=== PATIENT | female | born 1995 | race Caucasian/White ===

== ENCOUNTER 2023-01-05 12:35 | Emergency (ER) | payer BC ==
[~2023-01-05] VITALS: Ht 162.6 cm; Wt 59.4 kg
--- NOTE | 2023-01-05 12:50 | NUR ---
URINE SAMPLE COLLECTED AND SENT TO LAB
[2023-01-05 13:33] LABS: BILIRUBIN,URINE NEGATIVE (NEGATIVE); COLOR,URINE YELLOW (YELLOW); LEUKOCYTE ESTERASE ,URINE NEGATIVE (NEGATIVE); NITRITE, URINE NEGATIVE (NEGATIVE); PROTEIN,URINE NEGATIVE (NEGATIVE); UGLUCOSE NEGATIVE (NEGATIVE); UROBILINOGEN,URINE 0.2 EU/dL (0.2)
[2023-01-05 13:34] LABS: BACTERIA,URINE Rare /HPF (None Seen); SQUAMOUS EPITHELIAL CELL,UR Few /HPF (None Seen); WBC,URINE 0-2 /HPF (0-3)
[2023-01-05] MEDS ORDERED: IV NS 0.9% 1,000 ML IV ONE (14:00)
[2023-01-05] MEDS ORDERED: KETOROLAC TROMETHAMINE INJ 30 MG/ML VIAL IV ONE (14:00)
[2023-01-05 14:27] LABS: BASOPHILS # (AUTO) 0.1 K/uL (0.0-0.2); BASOPHILS % (AUTO) 1.1 % (0.0-2.0); EOSINOPHILS % (AUTO) 1.3 % (0.0-6.0); HEMATOCRIT 46 % (33-45); HEMOGLOBIN 15.6 g/dL (11.5-14.8); LYMPHOCYTES % (AUTO) 37.8 % (20.0-44.0); MEAN CORPUSCULAR HGB CONC 34 g/dl (31.0-36.0); MEAN CORPUSCULAR VOLUME 93 fL (82-100); MONOCYTES # (AUTO) 0.2 K/uL (0.1-1.30); MONOCYTES % (AUTO) 4.4 % (2.0-12.0); NEUTROPHILS # (AUTO) 2.9 K/uL (1.8-8.9); NEUTROPHILS % (AUTO) 55.4 % (43.0-81.0); PLATELET COUNT (AUTO) 246 K/uL (150-450); RED BLOOD CELL COUNT(AUTO) 4.97 MIL/uL (4.0-5.2); WHITE BLOOD COUNT (AUTO) 5.3 K/uL (4.3-11.0)
[2023-01-05 14:51] LABS: ALBUMIN 4.3 g/dL (3.4-5.0); BILIRUBIN,TOTAL 0.4 mg/dL (0.2-1.0); CALCIUM, SERUM 9.8 mg/dL (8.5-10.1); CREATININE 0.7 mg/dL (0.6-1.3); POTASSIUM 3.9 mmol/L (3.5-5.1); TOTAL PROTEIN, SERUM 8.3 g/dL (6.4-8.2)
[2023-01-05] MEDS ORDERED: IBUP-1955 PO (15:02)
[2023-01-05] MEDS ORDERED: PHEN-704 PO (15:02)
[2023-01-05 15:18] VITALS: BP 115/76
--- NOTE | 2023-01-05 15:18 | NUR ---
Patient discharged to home in stable condition, ambulating. Written and verbal after care instructions given. Patient verbalizes understanding of instruction.
== END 2023-01-05 15:19 | disposition home or self-care (01) ==
LOC: ER 12:36
DX: R55 Syncope and collapse (principal); R30.0 Dysuria; Z79.899 Other long term (current) drug therapy
CPT/HCPCS: 36415; 80053-TC; 81001; 83690-TC; 84703-TC; 85025-TC

== ENCOUNTER 2023-01-08 08:22 | Emergency (ER) | payer BC ==
[~2023-01-08] VITALS: Ht 162.6 cm; Wt 59.4 kg
[~2023-01-08 08:22] MED LIST: IBUP-1955 PO; PHEN-704 PO
--- NOTE | 2023-01-08 08:36 | NUR ---
C/O NECK PAIN RADIATING TO LEFT UPPER ARM THIS AM AFTER WAKING UP. DENIES TRAUMA.
--- NOTE | 2023-01-08 08:59 | NUR ---
AMBULATED TO RESTROOM WITH STEADY GAIT FOR URINE SAMPLE.
--- NOTE | 2023-01-08 09:05 | NUR ---
URINE SAMPLE COLLECTED AND SENT TO LAB
--- NOTE | 2023-01-08 09:05 | NUR ---
PT TAKEN TO CT VIA WHEELCHAIR
[2023-01-08] MEDS ORDERED: IBUPROFEN 600 MG TABLET ONE (09:42)
[2023-01-08] MEDS ORDERED: CYCLOBENZAPRINE 10 MG TABLET ONE (09:42)
[2023-01-08] MEDS ORDERED: IBUPROFEN 600 MG TABLET PO ONE (10:00)
[2023-01-08] MEDS ORDERED: CYCLOBENZAPRINE 10 MG TABLET PO ONE (10:00)
[2023-01-08] MEDS ORDERED: CYCL5TAB PO (10:47)
[2023-01-08] MEDS ORDERED: NAPR-1009 PO (10:47)
[2023-01-08] MEDS ORDERED: METH4TAB3 PO (10:47)
--- NOTE | 2023-01-08 10:57 | NUR ---
Patient discharged to home in stable condition. Written and verbal after care instructions given. Patient verbalizes understanding of instruction.
[2023-01-08 11:00] VITALS: BP 131/79
== END 2023-01-08 11:02 | disposition home or self-care (01) ==
LOC: ER 08:26
DX: M54.12 Radiculopathy, cervical region (principal); M79.602 Pain in left arm; Z79.899 Other long term (current) drug therapy
CPT/HCPCS: 72125-TC; 84703-TC